=== PATIENT | female | born 1980 | race Caucasian/White ===

== ENCOUNTER → 2019-12-10 11:00 | Outpatient (BNVA) | payer SELFPAY | PROVIDERS: PCP Family Medicine; Visit Provider Nurse Practitioner Family | DX: Z11.59 Encounter for screening for other viral diseases (principal); A64 Unspecified sexually transmitted disease; R22.9 Localized swelling, mass and lump, unspecified | CPT/HCPCS: 86803; 87491; 87591; 87661 ==

== ENCOUNTER → 2021-05-24 13:22 | Outpatient (BNVA) | payer OTHER, SELFPAY | PROVIDERS: PCP Family Medicine; Visit Provider Nurse Practitioner Family | DX: R19.7 Diarrhea, unspecified (principal); K08.89 Other specified disorders of teeth and supporting structures; K21.9 Gastro-esophageal reflux disease without esophagitis; Z71.6 Tobacco abuse counseling | CPT/HCPCS: 80053; 84443; 85025 ==

== ENCOUNTER → 2021-05-25 11:47 | Outpatient (BNVA) | payer OTHER, SELFPAY | PROVIDERS: PCP Family Medicine; Visit Provider Nurse Practitioner Family | DX: R19.7 Diarrhea, unspecified (principal) | CPT/HCPCS: 87338; 87493; 87506 ==

== ENCOUNTER → 2021-06-20 13:43 | Outpatient (BNVA) | payer OTHER, SELFPAY | PROVIDERS: PCP Family Medicine; Visit Provider Nurse Practitioner Family | DX: R19.7 Diarrhea, unspecified (principal); K21.9 Gastro-esophageal reflux disease without esophagitis; A04.8 Other specified bacterial intestinal infections; Z71.6 Tobacco abuse counseling | CPT/HCPCS: 81000 ==

== ENCOUNTER → 2021-06-23 09:11 | Outpatient (BNVA) | payer OTHER, SELFPAY | PROVIDERS: PCP Family Medicine; Visit Provider Nurse Practitioner Family | DX: R19.7 Diarrhea, unspecified (principal) | CPT/HCPCS: 87493 ==

== ENCOUNTER → 2021-07-27 10:12 | Outpatient (BNVA) | payer OTHER, SELFPAY | PROVIDERS: PCP Family Medicine; Visit Provider Internal Medicine | DX: K21.9 Gastro-esophageal reflux disease without esophagitis (principal); Z01.812 Encounter for preprocedural laboratory examination; Z20.822 Contact with and (suspected) exposure to COVID-19 | CPT/HCPCS: 87635 ==

== ENCOUNTER 2021-07-31 09:28 | Day surgery (SDC) | payer OTHER, SELFPAY ==
[2021-07-26 13:51] VITALS: BMI 32.5
--- NOTE | 2021-07-31 09:02 | W.PM.OPSFHP ---
Same Day Surgery H&P Indication for Procedure/HPI DATE OF PROCEDURE: July 31, 2021 CHIEF COMPLAINT/INDICATIONFOR SURGICAL PROCEDURE: Diarrhea PREOP DIAGNOSIS: Diarrhea PLANNED PROCEDRUE: Operation Date: 07/31/21 11:00 Proposed Procedures p EGD 14229 K21.9(Not Applicable) - Bran Shanks MD Medications/Allergies* Home Medications Medication Instructions Recorded Confirmed Type Protonix 40 mg PO DAILY 07/26/21 07/26/21 History Allergies/Adverse Reactions Allergy/AdvReac Type Severity Reaction Status Date / Time Penicillins Allergy ALGY-Rash Verified 07/26/21 13:44 Pertinent History/Comorbid Conditions* Surgical History (Updated 01/27/21 @ 07:17 by VIKAS Briceño) History of delivery History of cholecystectomy History of tubal ligation Family History (Updated 12/10/19 @ 09:27 by Renetta Chanel LPN) Cancer Mother MOTHER HAD BREAST CANCER Social History Smoking and tobacco status: current every day smoker cigarettes Packs smoked per day: 2 Years cigarettes smoked: 20 Quit status (tobacco): considering quitting Second hand smoke exposure: Yes Smoking risk assessment/counseling performed?: Yes Alcohol intake: never Caregiver/support person: Yes Lives independently: Yes (spouse) Household members: spouse Marital status: service: No Current occupational status: employed Current occupation: [employer] History of recent travel: No Current gender identity: Female Special ashli needs: No Agree to transfusion: Yes Pertinent Exam Findings alert, oriented x 3, clear to auscultation bilaterally, regular rate & rhythm, operative site marked and procedure specific exam findings Recommendations Surgery/Procedure today Coding Level of Care Code Acute Licensed Electrician for Cherry Hernandez
[2021-07-31 10:29] VITALS: BP 106/70; PULSE 66; RESP 16; TEMP 36.6; O2SAT 96
[2021-07-31] MEDS: sodium chloride 0.9% 1,000 ML 30 ML IV (10:37)
--- NOTE | 2021-07-31 10:39 | P.ANESASSM_ITS ---
Pre-Anesthetic Assessment Pre-Anesthetic Assessment: Height/Weight: Height 1.83 m Weight 108.862 kg Temp Pulse Resp BP Pulse Ox 97.8 F 66 16 106/70 96 07/31/21 10:29 07/31/21 10:29 07/31/21 10:29 07/31/21 10:29 07/31/21 10:29 Preop Diagnosis: GERD Proposed Procedure: Operation Date: 07/31/21 11:00 Proposed Procedures p EGD 00423 K21.9(Not Applicable) - Bran Shanks MD Familial anesthetic complications: none Was Beta Isabel taken within 24 hours: N/A Was Clonidine taken within 24 hours: N/A Last intake: Intake Last Liquid Date 07/30/21 Last Liquid Time 19: Last Solid Date 07/30/21 Last Solid Time 19:00 Social: Social History: Tobacco and No alcohol Exam: Pre-Anes Outpt Exam: alert, oriented x 3, clear to auscultation bilaterally and regular rate & rhythm Airway: Cervical ROM: WNL MP: 3 Dentition: Chipped, Loose and Other (extremely poor dentition) Anesthetic Plan: ASA status: 2 Anesthesia: MAC Risk of > 500 ml blood loss (7ml/kg in children): No PFSH Anesthesia PFSH: Surgical History History of delivery History of cholecystectomy History of tubal ligation Family History Mother Cancer MOTHER HAD BREAST CANCER Social History Smoking and tobacco status: current every day smoker cigarettes Packs smoked per day: 2 Years cigarettes smoked: 20 Quit status (tobacco): considering quitting Second hand smoke exposure: Yes Smoking risk assessment/counseling performed?: Yes Alcohol intake: never Caregiver/support person: Yes Lives independently: Yes (spouse) Household members: spouse Marital status: service: No Current occupational status: employed Current occupation: [employer] History of recent travel: No Current gender identity: Female Special ashli needs: No Agree to transfusion: Yes Data Anesthesia Cardiac Studies: No Data to Display
[2021-07-31 11:45] VITALS: BP 99/71; PULSE 66; RESP 16; TEMP 36.1; O2SAT 99
--- NOTE | 2021-07-31 11:49 | ANE.PACU2 ---
Inpatient post-anesthesia follow up: Airway intact: Yes Vital signs: Temperature 97.8 F Pulse Rate 66 Respiratory Rate 16 Blood Pressure 106/70 Pulse Oximetry 96 Oxygen Delivery Me thod Room Air Oxygen Flow Rate Fraction of Inspir ed Oxygen Hydration adequate: Yes Nausea and vomiting: No Pain level: 1 Mental status: Baseline
[2021-07-31 12:02] VITALS: BP 99/64; PULSE 48; RESP 16; O2SAT 97
[2021-08-01 06:06] LABS: H. Pylori / CLO Test Positive
== END 2021-07-31 12:30 | disposition home or self-care (01) ==
PROVIDERS: PCP Family Medicine; Visit Provider Internal Medicine
PROC: 0DJ08ZZ Inspection of Upper Intestinal Tract, Via Natural or Artificial Opening Endoscopic (ICD-10-PCS; CPT 43235; principal; 2021-07-31 11:00)
DX: R19.7 Diarrhea, unspecified (principal); K29.70 Gastritis, unspecified, without bleeding; F17.210 Nicotine dependence, cigarettes, uncomplicated
CPT/HCPCS: 43239; 87077; 96360; J2704; J7030

== ENCOUNTER → 2021-08-10 15:22 | Outpatient (BNVA) | payer OTHER, SELFPAY | PROVIDERS: PCP Family Medicine; Visit Provider Nurse Practitioner Family | DX: R05 Cough (principal); Z20.822 Contact with and (suspected) exposure to COVID-19 | CPT/HCPCS: 87635 ==

== ENCOUNTER 2022-07-11 16:29 | Emergency (ER) | payer OTHER, SELFPAY ==
[2022-07-11 17:21] VITALS: BP 103/64; PULSE 66; RESP 14; TEMP 36.6; O2SAT 98; BMI 30.4
--- NOTE | 2022-07-11 19:33 | XRR_ITS ---
PROCEDURE INFORMATION: Exam: XR Left Ankle Exam date and time: 07/11/2022 7:52 PM Age: 42 years old Clinical indication: Injury or trauma; Other: Fell in hole; Sprain or strain; Ankle; Left; Additional info: Pain/injury TECHNIQUE: Imaging protocol: Radiologic exam of the Left ankle. Views: 3 or more views. COMPARISON: No relevant prior studies available. FINDINGS: Bones/joints: Small bony fragment at the tip of the medial malleolus appears chronic given corticated margins. Mild lateral malleolar soft tissue swelling. Soft tissues: See Bones/joints finding. XR/XR ankle LT min 3V* [id number] IMPRESSION: 1. Negative for acute fracture or dislocation. 2. Small bony fragment at the tip of the medial malleolus appears chronic given corticated margins. 3. Mild lateral malleolar soft tissue swelling.
[2022-07-11 20:07] VITALS: BP 103/64; PULSE 66; RESP 14; TEMP 36.6; O2SAT 98
--- NOTE | 2022-07-11 20:11 | ED_ITS ---
HPI - Extremity Injury (Lower) General: Chief Complaint: Extremity Injury, Lower Stated Complaint: Left ankle pain Time Seen by Provider: 07/11/22 20:04 Source: patient Mode of arrival: wheelchair Limitations: no limitations History of Present Illness: Patient is a 42-year-old female who presents to ED today for evaluation of a left foot/ankle injury that she sustained earlier today after stepping in a hole. Patient states she is not able to bear weight on the extremity. She has no other injuries or complaints at this time. MD complaint: ankle injury and foot injury Onset (ago): hour(s) Injury: Left: ankle and foot Review of Systems Musc: Reports: joint pain (L ankle) and joint swelling (L ankle); Denies: neck pain, back pain, extremity pain, extremity swelling or joint redness Neuro: Denies: numbness in extremities or sensory changes PFSH ED PFSH: Surgical History History of delivery History of cholecystectomy History of tubal ligation Family History Mother Cancer MOTHER HAD BREAST CANCER Social History Smoking and tobacco status: current every day smoker cigarettes Packs smoked per day: 2 Years cigarettes smoked: 20 Quit status (tobacco): considering quitting Second hand smoke exposure: Yes Smoking risk assessment/counseling performed?: Yes Alcohol intake: never Caregiver/support person: Yes Lives independently: Yes (spouse) Household members: spouse Marital status: service: No Current occupational status: employed Current occupation: [employer] History of recent travel: No Current gender identity: Female Special ashli needs: No Agree to transfusion: Yes Physical Exam Const: COMMON NORMALS: no acute distress, patient oriented x3, no limitations, alert and well nourished GENERAL APPEARANCE: cooperative Extremity: COMMON NORMALS: capillary refill normal GENERAL: Yes normal exam except as noted LEFT LOWER EXTREMITY: Yes ankle joint (TTP L lateral malleolus; no bony deformity; swelling noted) Left ankle: Yes ROM (limited) and Yes neurovascular exam (normal) and Yes foot & digits (TTP L lateral proximal foot overlying 5th metatarsal region) Left foot and digits: Yes neurovascular exam (normal ) Neuro: COMMON NORMALS: patient oriented x3, moves all extremities, no focal motor deficits and no sensory deficits noted SENSORIUM/ORIENTATION: Yes alert Course Vital Signs: Vital signs: Vital Signs Temperature 97.9 F 07/11/22 20:07 Pulse Rate 66 07/11/22 20:07 Respiratory Rate 14 07/11/22 20:07 Blood Pressure 103/64 07/11/22 20:07 Pulse Oximetry 98 07/11/22 20:07 Oxygen Delivery Me thod 07/11/22 20:07 MDM - Extremity Injury (Lower) Medical Decision Making XR negative. Will BALJINDER wrap/give crutches/instructions for weight bearing as tolerated/RICE therapy. Recommend follow-up with PCP in 1 to 2 weeks if symptoms do not seem to be improving. Lab Data Radiology Impressions Ankle X-Ray 07/11/22 19:33 IMPRESSION: 1. Negative for acute fracture or dislocation. 2. Small bony fragment at the tip of the medial malleolus appears chronic given corticated margins. 3. Mild lateral malleolar soft tissue swelling. Foot X-Ray 07/11/22 20:31 IMPRESSION: No acute findings. Discharge Plan Discharge Patient Disposition: Home Clinical Impression: Left ankle sprain Qualifiers: Encounter type: initial encounter Involved ligament of ankle: unspecified ligament Qualified Code(s): S93.402A - Sprain of unspecified ligament of left ankle, initial encounter Condition: Stable Prescriptions: No Action dexamethasone 6 mg tablet 6 mg PO DAILY Qty: 7 0RF doxycycline hyclate 100 mg tablet 100 mg PO BID Qty: 20 0RF metronidazole [Flagyl] 500 mg tablet 500 mg PO TID 10 Days Qty: 30 0RF bismuth subsalicylate [Pepto-Bismol] 262 mg/15 mL suspension 524 mg PO QID Qty: 1200 0RF Rx Instructions: before meals and before bedtime albuterol sulfate 90 mcg/actuation HFA aerosol inhaler See Rx Instructions .ROUTE .COMPLEX Qty: 8.5 3RF Dose Instruction: INHALE TWO PUFFS INTO LUNGS EVERY 6 HOURS NEEDED FOR SHORTNESS OF BREATH OR WHEEZING Rx Instructions: INHALE TWO PUFFS INTO LUNGS EVERY 6 HOURS NEEDED FOR SHORTNESS OF BREATH OR WHEEZING pantoprazole 40 mg tablet,delayed release (DR/EC) 40 mg PO BID Qty: 90 8RF Discharge Orders: Discharge ED (Routine); Ordered 07/11/22 Ordered By: Michell Laoz Referrals: eSndy Pereira MD [Primary Care Provider] - Patient Instructions: Ankle Sprain (ED) Stand Alone Forms: Work/School Release Coding Level of Care Code ED Product Development Worker for Cherry Hernandez
--- NOTE | 2022-07-11 20:31 | XRR_ITS ---
PROCEDURE INFORMATION: Exam: XR Left Foot Exam date and time: 07/11/2022 8:37 PM Age: 42 years old Clinical indication: Injury or trauma; Fall; Swelling (edema); Foot; Left; Additional info: Injury/lateral swelling TECHNIQUE: Imaging protocol: Radiologic exam of the Left foot. Views: 3 or more views. COMPARISON: CR (LOW EXM, ) 07/11/2022 7:52 PM FINDINGS: Bones/joints: Normal. Soft tissues: Normal. XR/XR foot LT min 3V* [id number] IMPRESSION: No acute findings.
[2022-07-11] MEDS: HYDROcodone-acetaminophen 5-325 mg Tablet 1 TAB PO (21:24)
== END 2022-07-11 22:12 | disposition home or self-care (01) ==
PROVIDERS: Emergency Provider Physician Assistant; PCP Family Medicine
DX: S93.402A Sprain of unspecified ligament of left ankle, initial encounter (principal); F17.210 Nicotine dependence, cigarettes, uncomplicated; X50.1XXA Overexertion from prolonged static or awkward postures, initial encounter
CPT/HCPCS: 73610; 73630; 99283; E0114

== ENCOUNTER → 2023-03-19 12:20 | Outpatient (BNVA) | payer MEDICAID, SELFPAY | PROVIDERS: PCP Family Medicine; Visit Provider Family Medicine | DX: N63.20 Unspecified lump in the left breast, unspecified quadrant (principal); Z84.81 Family history of carrier of genetic disease | CPT/HCPCS: 81162 ==

== ENCOUNTER 2023-04-02 08:39 | Outpatient (CLI) | payer MEDICAID, SELFPAY ==
--- NOTE | 2023-04-02 08:49 | MM_ITS ---
WS: [id number] BILATERAL 3D TOMOSYNTHESIS DIGITAL DIAGNOSTIC MAMMOGRAPHY WITH CAD CLINICAL INFORMATION: N63.20 - Unspecified lump in the left breast, unspecified... HISTORY: Palpable lump LEFT breast COMPARISON: 2018 TECHNIQUE: Bilateral CC, MLO, and ML views. FINDINGS: Scattered fibroglandular densities bilaterally. Palpable marker upper outer LEFT breast near the 12:0 0 position. Normal underlying parenchymal tissue. Ultrasound described below. RIGHT breast is unchanged and unremarkable. A few incidental stable punctate calcifications. ULTRASOUND BREAST RIGHT TECHNIQUE: Ultrasound right breast focused area of concern. CLINICAL INFORMATION: N63.20 - Unspecified lump in the left breast, unspecified... FINDINGS: Ultrasound RIGHT breast 12 to 2:00 position in the area of concern. Normal underlying parenchymal tis abby. No cystic or solid lesions. No suspicious findings to target for biopsy. Recommend return to [facility] screening mammography. MM/[place] [id number] IMPRESSION: BI-RADS: 2-Benign FOLLOW UP: 1 Year Follow-up Recommend return to annual screening mammography.
== END 2023-04-02 08:40 | disposition home or self-care (01) ==
PROVIDERS: PCP Family Medicine; Visit Provider Family Medicine
DX: N63.20 Unspecified lump in the left breast, unspecified quadrant (principal); Z84.81 Family history of carrier of genetic disease
CPT/HCPCS: 76642; 77062; G0279

== ENCOUNTER → 2023-04-25 10:51 | Outpatient (BNVA) | payer MEDICAID, SELFPAY | PROVIDERS: PCP Family Medicine; Visit Provider Family Medicine | DX: F19.90 Other psychoactive substance use, unspecified, uncomplicated (principal); Z20.5 Contact with and (suspected) exposure to viral hepatitis | CPT/HCPCS: 86592; 87389 ==

== ENCOUNTER → 2023-05-06 09:11 | Outpatient (BNVA) | payer MEDICAID, SELFPAY | PROVIDERS: PCP Family Medicine; Visit Provider Family Medicine | DX: Z20.5 Contact with and (suspected) exposure to viral hepatitis (principal) | CPT/HCPCS: 86705; 86706; 86709; 86803; 87340 ==

== ENCOUNTER → 2023-05-10 10:15 | Outpatient (BNVA) | payer MEDICAID, SELFPAY | PROVIDERS: PCP Family Medicine; Visit Provider Family Medicine | DX: B19.10 Unspecified viral hepatitis B without hepatic coma (principal) | CPT/HCPCS: 80076 ==

== ENCOUNTER → 2023-05-24 11:58 | Outpatient (BNVA) | payer MEDICAID, SELFPAY | PROVIDERS: PCP Family Medicine; Visit Provider Family Medicine | DX: B19.10 Unspecified viral hepatitis B without hepatic coma (principal) | CPT/HCPCS: 87350 ==

== ENCOUNTER → 2023-10-07 15:25 | Outpatient (BNVA) | payer MEDICAID, SELFPAY | PROVIDERS: PCP Family Medicine; Visit Provider Nurse Practitioner Family | DX: R50.9 Fever, unspecified (principal); J32.9 Chronic sinusitis, unspecified | CPT/HCPCS: 87426 ==

== ENCOUNTER → 2024-05-26 11:37 | Outpatient (BNVA) | payer MEDICAID, SELFPAY | PROVIDERS: PCP Family Medicine; Visit Provider Nurse Practitioner Family | DX: R30.0 Dysuria (principal); M54.50 Low back pain, unspecified | CPT/HCPCS: 81000 ==

== ENCOUNTER 2024-05-27 07:28 | Outpatient (CLI) | payer MEDICAID, SELFPAY ==
--- NOTE | 2024-05-27 07:33 | XR_ITS ---
WS: [id number] Exam: XR lumbar spine 2-3V* [id number] Date/Time of Exam: 05/27/2024 7:37 AM Reason For Exam: M54.50 - Low back pain, unspecified No fracture or dislocation. Slight narrowing of the L5-S1 disc. Posterior elements are intact. IMPRESSION1. Mild degenerative narrowing of the L5-S1 disc otherwise unremarkable lumbar spine study.
== END 2024-05-27 07:29 | disposition home or self-care (01) ==
PROVIDERS: PCP Family Medicine; Visit Provider Nurse Practitioner Family
DX: M54.50 Low back pain, unspecified (principal)
CPT/HCPCS: 72100

== ENCOUNTER 2025-04-09 06:00 | Outpatient (CLI) | payer OTHER, SELFPAY | END 2025-04-09 06:01 | disposition home or self-care (01) | PROVIDERS: PCP Nurse Practitioner Family; Visit Provider Nurse Practitioner Family | DX: E66.9 Obesity, unspecified (principal) | CPT/HCPCS: 80053; 82607; 84443; 85025 ==

== ENCOUNTER 2025-04-22 14:02 | Outpatient (CLI) | payer OTHER, SELFPAY ==
--- NOTE | 2025-04-22 14:00 | MM_ITS ---
WS: [id number] BILATERAL 3D TOMOSYNTHESIS DIGITAL SCREENING MAMMOGRAPHY WITH CAD CLINICAL INFORMATION: N63.10 - Unspecified lump in the right breast, unspecifie... HISTORY: Screening mammogram. Palpable markers bilaterally. COMPARISON: 2022 TECHNIQUE: Bilateral CC and MLO views. FINDINGS: Scattered fibroglandular densities bilaterally. Bilateral palpable breast markers. Normal underlying parenchymal tissue. Ultrasound of these areas is pending. No other suspicious abnormalities. ULTRASOUND BREAST BILATERAL TECHNIQUE: Ultrasound bilateral breast focused area of concern. CLINICAL INFORMATION: N63.10 - Unspecified lump in the right breast, unspecifie... FINDINGS: Ultrasound RIGHT breast 12 o'clock position 4 cm from the nipple in the area of palpable concern. Dense underlying parenchymal tissue. No suspicious cystic or solid lesions. No suspicious findings in this area. Ultrasound LEFT breast 2 o'clock position patient directed. Normal underlying parenchymal tissue. No cystic or solid lesions. No suspicious lesions to target for biopsy. MM/MM diag tomosynthesis [id number] IMPRESSION: DENSITY: There are scattered areas of fibroglandular density. BI-RADS: 2 - Benign. FOLLOW UP: 1 Year Follow-up Recommend return to annual screening mammography.
--- NOTE | 2025-04-22 14:30 | US_ITS ---
WS: [id number] BILATERAL 3D TOMOSYNTHESIS DIGITAL SCREENING MAMMOGRAPHY WITH CAD CLINICAL INFORMATION: N63.10 - Unspecified lump in the right breast, unspecifie... HISTORY: Screening mammogram. Palpable markers bilaterally. COMPARISON: 2022 TECHNIQUE: Bilateral CC and MLO views. FINDINGS: Scattered fibroglandular densities bilaterally. Bilateral palpable breast markers. Normal underlying parenchymal tissue. Ultrasound of these areas is pending. No other suspicious abnormalities. ULTRASOUND BREAST BILATERAL TECHNIQUE: Ultrasound bilateral breast focused area of concern. CLINICAL INFORMATION: N63.10 - Unspecified lump in the right breast, unspecifie... FINDINGS: Ultrasound RIGHT breast 12 o'clock position 4 cm from the nipple in the area of palpable concern. Dense underlying parenchymal tissue. No suspicious cystic or solid lesions. No suspicious findings in this area. Ultrasound LEFT breast 2 o'clock position patient directed. Normal underlying parenchymal tissue. No cystic or solid lesions. No suspicious lesions to target for biopsy. US/US breast BI limited* [id number] IMPRESSION: DENSITY: There are scattered areas of fibroglandular density. BI-RADS: 2 - Benign. FOLLOW UP: 1 Year Follow-up Recommend return to annual screening mammography.
== END 2025-04-22 14:03 | disposition home or self-care (01) ==
PROVIDERS: PCP Nurse Practitioner Family; Visit Provider Nurse Practitioner Family
DX: N63.10 Unspecified lump in the right breast, unspecified quadrant (principal); N63.20 Unspecified lump in the left breast, unspecified quadrant; R92.323 Mammographic fibroglandular density, bilateral breasts
CPT/HCPCS: 76642; 77062; G0279